=== PATIENT | female | born 1985 | race Two or more races ===

== ENCOUNTER 2021-11-25 06:19 | Inpatient (IN) | payer OTHER ==
[~2021-11-25] VITALS: Ht 165.1 cm; Wt 61.2 kg
[2021-11-25] MEDS ORDERED: IV NS 0.9% 1,000 ML BAG IV ONE ×2 (07:30→10:00)
[2021-11-25] MEDS ORDERED: ONDANSETRON HCL/PF 4 MG/2 ML VIAL IVP ONE ×2 (07:30→10:00)
[2021-11-25] MEDS ORDERED: MORPHINE SULFATE INJ 2 MG/ML DISP.SYRIN IV ONE (07:30)
--- NOTE | 2021-11-25 08:00 | NUR ---
ARTUR 89 FROM HOME FOR C/O ABDOMINAL PAIN 05/20, N/V/ X 3 DAYS. WAS HOSPITALIZED AT [facility] FOR COVID 2 WEEKS AGO. THE PATIENT IS ALERT AND ORIENTED X4. IN ROOM AIR AND DENIES SOB. RESPIRATION REGULAR AND UNLABORED. WILL CONTINUE TO MONITOR THE PATIENT.
[2021-11-25] MEDS ORDERED: ONDANSETRON HCL/PF 4 MG/2 ML VIAL ONE ×2 (08:08→10:29)
[2021-11-25] MEDS ORDERED: MORPHINE SULFATE INJ 4 MG/ML DISP.SYRIN ONE (08:08)
--- NOTE | 2021-11-25 08:15 | NUR ---
IV LINE IS ESTABLISHED, BLOOD SPECIMEN COLLECTED AND SENT TO THE LAB. THE LINE IS SALINE LOCKED.
[2021-11-25 08:37] LABS: HEMATOCRIT 40 % (33-45); HEMOGLOBIN 13.4 g/dL (11.5-14.8); LYMPHOCYTES # (AUTO) 0.4 K/uL (0.8-4.8); MEAN CORPUSCULAR HGB CONC 34 g/dl (31.0-36.0); MEAN CORPUSCULAR VOLUME 109 fL (82-100); MONOCYTES # (AUTO) 0.3 K/uL (0.1-1.30); MONOCYTES % (AUTO) 7.9 % (2.0-12.0); NEUTROPHILS # (AUTO) 3.5 K/uL (1.8-8.9); NEUTROPHILS % (AUTO) 82.1 % (43.0-81.0); PLATELET COUNT (AUTO) 226 K/uL (150-450); RED BLOOD CELL COUNT(AUTO) 3.64 MIL/uL (4.0-5.2); WHITE BLOOD COUNT (AUTO) 4.3 K/uL (4.3-11.0)
[2021-11-25 09:17] LABS: ALBUMIN 4.9 g/dL (3.4-5.0); BILIRUBIN,DIRECT 0.5 mg/dL (0.0-0.2); BILIRUBIN,TOTAL 1.6 mg/dL (0.2-1.0); CALCIUM, SERUM 10.1 mg/dL (8.5-10.1); CREATININE 1.1 mg/dL (0.6-1.3); TOTAL PROTEIN, SERUM 10.1 g/dL (6.4-8.2)
[2021-11-25 09:34] LABS: POTASSIUM 3.2 mmol/L (3.5-5.1)
[2021-11-25 10:28] LABS: ACETAMINOPHEN 0 ug/ml (10-30); ALCOHOL, BLOOD < 3 mg/dL (0-0)
[2021-11-25 10:59] LABS: BILIRUBIN,URINE NEGATIVE (NEGATIVE); COLOR,URINE RED (YELLOW); LEUKOCYTE ESTERASE ,URINE NEGATIVE (NEGATIVE); NITRITE, URINE POSITIVE (NEGATIVE); PROTEIN,URINE >=300 mg/dl (NEGATIVE); UGLUCOSE NEGATIVE (NEGATIVE)
[2021-11-25 11:14] LABS: BACTERIA,URINE Few /HPF (None Seen); RBC,URINE TOO NUMEROUS TO COUN /HPF (0-2); SQUAMOUS EPITHELIAL CELL,UR Few /HPF (None Seen); WBC,URINE 0-2 /HPF (0-3)
[2021-11-25] MEDS ORDERED: CEFTRIAXONE 2 G in IV D5W 50 ML IV ONE (12:30)
--- NOTE | 2021-11-25 12:54 | NUR ---
COVID ANTIGEN SWAB DONE AND SENT TO THE LAB
--- NOTE | 2021-11-25 15:49 | NUR ---
CALLED NURSING SUP REGARDING PT BED
--- NOTE | 2021-11-25 16:36 | NUR ---
ROOM 314-1
--- NOTE | 2021-11-25 16:41 | NUR ---
REPORT GIVEN TO NURSE LYNDA FOR BESSIE
--- NOTE | 2021-11-25 16:46 | NUR ---
THE PATIENT IS TRANSFERED TO ROOM 314-1 IN STABLE CONDITION AND PER POLICY
--- NOTE | 2021-11-25 17:00 | NUR ---
ADMISSION NOTE Received patient via gurney. Patient is A/O x 4, able to make needs known. On room air, breathing evenly and unlabored. No SOB or s/s of distress noted. IV access on Left hand #20G SL, intact and patent. Patient oriented to room and how to use the call light. Skin assessment done, skin is c/d/i. Breath sounds clear all throughout. Safety precautions in place: bed in low, locked position; siderails up x 2; call light within reach. Will continue to monitor.
[2021-11-25] MEDS ORDERED: MAGNESIUM HYDROXIDE 30 ML UDC PO PRN (18:00)
[2021-11-25] MEDS ORDERED: ONDANSETRON HCL/PF 4 MG/2 ML VIAL IVP PRN (18:00)
[2021-11-25] MEDS ORDERED: MAG HYDROX/AL HYDROX/SIMETH 30 ML UDC PO PRN (18:00)
[2021-11-25] MEDS ORDERED: ZOLPIDEM TARTRATE 5 MG TABLET PO PRN (18:00)
[2021-11-25] MEDS ORDERED: MORPHINE SULFATE INJ 2 MG/ML DISP.SYRIN IV PRN (18:00)
[2021-11-25] MEDS ORDERED: ACETAMINOPHEN 325 MG TABLET PO PRN (18:00)
[2021-11-25] MEDS ORDERED: Z GUARD REMEDY 4 OZ OINT TP PRN (18:00)
[2021-11-25] MEDS: HYDROCODONE/APAP 5/325MG TABLET PO PRN (18:12)
--- NOTE | 2021-11-25 18:12 | NUR ---
RN NOTE Patient complained of pain on abdomen 04/19, PRN [place] given. Will continue to monitor.
--- NOTE | 2021-11-25 19:40 | NUR ---
MS RN CLOSING NOTE Patient in bed, asleep. A/O x 4, able to make needs known. Stable on room air, breathing evenly and unlabored. No SOB or s/s of distress noted. IV access on Left hand #20G SL, intact and patent. NPO status maintained. All needs attended to. Denies any pain or discomfort at this time. Safety precautions maintained: bed in low, locked position; siderails up x 2; call light within reach. Will endorse to police shift commander nurse for BESSIE.
[2021-11-25 20:00] VITALS: BP 140/108
--- NOTE | 2021-11-25 20:00 | NUR ---
MS RN OPENING NOTE PATIENT SLEEPING AWAKE, EASILY AWAKENED, PT ALERT/ORIENTED X 4, ABLE TO MAKE NEEDS KNOWN. PT REPORTS MILD ABDOMINAL PAIN AT THIS TIME. PT STABLE ON RA, NO S/S OF DISTRESS OR SOB NOTED, BREATHING EVEN AND UNLABORED. PATIENT IS NPO EXCEPT FOR MEDS PER DAY SHIFT NURSE JESUS. IV ACCESS ON LEFT HAND #20G INTACT AND FLUSHING WELL. SAFETY MEASURES IN PLACE: CALL LIGHT WITHIN REACH, SIDE RAILS UP X 3, BED LOCKED IN LOW POSITION, TABLE WITHIN REACH. WILL CONTINUE TO MONITOR PATIENT
[2021-11-25] MEDS: IV D5/0.45 NACL 1,000 ML IV PRN (21:25)
[2021-11-25 22:00] VITALS: BP 135/110
--- NOTE | 2021-11-25 22:36 | NUR ---
MS RN NOTE REASSESSED PATIENT'S BP, BP NOW 135/110, HR: 84. NOTIFIED MEDICAL INSTRUCTOR MD WITH NO NEW MED ORDERS, STATED TO CONTINUE TO MONITOR PATIENT'S BP. WILL CONTINUE TO MONITOR PATIENT
[2021-11-26] VITALS: BP 135/82
--- NOTE | 2021-11-26 00:30 | NUR ---
MS RN NOTE REASSESSED PATIENT'S BP, NOW 134/82, HR: 76. WILL CONTINUE TO MONITOR PATIENT
[2021-11-26] MEDS: HYDROCODONE/APAP 5/325MG TABLET PO PRN (05:10)
[2021-11-26] MEDS: IV D5/0.45 NACL 1,000 ML IV PRN (05:28)
--- NOTE | 2021-11-26 06:49 | NUR ---
MS RN CLOSING NOTE PATIENT SLEEPING IN BED, EASILY AWAKENED, PT ALERT/ORIENTED X 4, ABLE TO MAKE NEEDS KNOWN. PT STABLE ON RA, NO S/S OF DISTRESS OR SOB NOTED, BREATHING EVEN AND UNLABORED. PATIENT IS NPO EXCEPT FOR MEDS, PAIN MEDICATION GIVEN ORDERED. IV ACCESS ON LEFT HAND #20G INTACT AND RUNNING D5 1/2 NS @ 125 ML/HR. PATIENT SLEPT WELL THROUGHOUT SHIFT, PT NEEDS MET. SAFETY MEASURES IN PLACE: CALL LIGHT WITHIN REACH, SIDE RAILS UP X 3, BED LOCKED IN LOW POSITION, TABLE WITHIN REACH. WILL ENDORSE TO DAY SHIFT NURSE FOR CONTINUITY OF CARE
[2021-11-26 07:18] LABS: BASOPHILS % (AUTO) 0.4 % (0.0-2.0); EOSINOPHILS % (AUTO) 0.7 % (0.0-6.0); HEMATOCRIT 36 % (33-45); HEMOGLOBIN 11.7 g/dL (11.5-14.8); LYMPHOCYTES # (AUTO) 0.7 K/uL (0.8-4.8); LYMPHOCYTES % (AUTO) 24.1 % (20.0-44.0); MEAN CORPUSCULAR HGB CONC 33 g/dl (31.0-36.0); MEAN CORPUSCULAR VOLUME 110 fL (82-100); MONOCYTES # (AUTO) 0.3 K/uL (0.1-1.30); NEUTROPHILS # (AUTO) 1.9 K/uL (1.8-8.9); NEUTROPHILS % (AUTO) 64.8 % (43.0-81.0); PLATELET COUNT (AUTO) 177 K/uL (150-450); RED BLOOD CELL COUNT(AUTO) 3.25 MIL/uL (4.0-5.2)
[2021-11-26 07:20] LABS: ALBUMIN 3.9 g/dL (3.4-5.0); BILIRUBIN,DIRECT 0.4 mg/dL (0.0-0.2); BILIRUBIN,TOTAL 1.1 mg/dL (0.2-1.0); CALCIUM, SERUM 9.1 mg/dL (8.5-10.1); CREATININE 0.9 mg/dL (0.6-1.3); MAGNESIUM 1.8 mg/dL (1.8-2.4); PHOSPHORUS 1.3 mg/dL (2.5-4.9); TOTAL PROTEIN, SERUM 7.9 g/dL (6.4-8.2)
[2021-11-26] MEDS ORDERED: CALC-168 PO (07:35)
[2021-11-26] MEDS ORDERED: LOSA25TA27 PO (07:35)
[2021-11-26] MEDS ORDERED: HYDR25TA4 PO (07:35)
[2021-11-26] MEDS ORDERED: HYDR50TA61 PO (07:35)
[2021-11-26] MEDS ORDERED: GABA300C PO (07:35)
--- NOTE | 2021-11-26 07:44 | NUR ---
RN OPENING NOTES PATIENT AWAKE IN BED RESTING, A/O X 4. NO S/S OF PAIN NOTED AT THIS TIME. PATIENT ON ROOM AIR NO DISTRESS OR SHORTNESS OF BREATH NOTED. IV ACCESS L HAND #20G, PATENT AND FLUSHING WELL. FALL AND SAFETY MEASURES IN PLACE, BED ALARM ON, BED IN LOW AND LOCK POSITION, CALL LIGHT AND TABLE WITHIN EASY REACH, SIDE RAILS UP X2. WILL CONTINUE TO MONITOR.
[2021-11-26 08:13] VITALS: BP 149/105
[2021-11-26 08:25] LABS: THYROID STIMULATING HORMONE 1.872 uIU/mL (0.358-3.74)
[2021-11-26] MEDS ORDERED: PANTOPRAZOLE 40 MG VIAL IV SCH (09:00)
[2021-11-26] MEDS ORDERED: POTASSIUM CL. PREMIX PERIPHER. 50 ML IV SCH (10:00)
[2021-11-26] MEDS ORDERED: POTASSIUM CHLORIDE 10 MEQ TABLET.SA PO SCH ×2 (12:00→15:00)
[2021-11-26] MEDS ORDERED: POTASSIUM CHLORIDE 20 MEQ TAB.PRT.SR PO SCH ×2 (12:00→15:00)
--- NOTE | 2021-11-26 14:20 | NUR ---
[employer] WORKER NOTE PATIENT WAS DISCHARGE IN MEDICAL STABLE CONDITIONS BUT, PATIENT POTASSIUM WAS 3.0 PATIENT REFUSED IV POTASSIUM AND LEFT WITHOUT TAKING PO POTASSIUM, EXPLANATION OF BENEFITS OF TAKING POTASSIUM AND RISK OF NOT TAKING IT WAS GIVEN TO PATIENT, PATIENT VERBALIZED UNDERSTANDING. PATIENT REFUSED VITAL SIGNS AND SKIN ASSESSMENT. NAME ARM BAND REMOVED. PATIENT REFUSED TO SIGNED BELONGING LIST AND DISCHARGE PAPERS. PATIENT LEFT UNIT AMBULATING WITH NO SIGNS DISTRESS, ACCOMPANIED BY MOLD BUNCH TRIMMER TO THE LOBBY. CHARGE NURSE AWARE OF DISCHARGE.
[2021-11-26] MEDS ORDERED: Sodium Phosphate 15 MMOL in IV NS 0.9% 250 ML IV SCH (16:00)
== END 2021-11-26 14:20 | disposition home or self-care (01) | DRG 775 ==
LOC: ER 06:21 → MED 16:51
PROVIDERS: ADMIT Student in an Organized Health Care Education/Training Program; ATTEND Student in an Organized Health Care Education/Training Program
DX: F12.13 Cannabis abuse with withdrawal (principal); F10.20 Alcohol dependence, uncomplicated; E87.2 Acidosis; K76.0 Fatty (change of) liver, not elsewhere classified; R11.2 Nausea with vomiting, unspecified; E87.1 Hypo-osmolality and hyponatremia; E87.6 Hypokalemia; F31.30 Bipolar disorder, current episode depressed, mild or moderate severity, unspecified; E86.0 Dehydration; I10 Essential (primary) hypertension; R10.9 Unspecified abdominal pain; R74.01 Elevation of levels of liver transaminase levels; Z20.822 Contact with and (suspected) exposure to COVID-19; F17.210 Nicotine dependence, cigarettes, uncomplicated; R82.998 Other abnormal findings in urine; Z71.6 Tobacco abuse counseling; Y90.0 Blood alcohol level of less than 20 mg/100 ml; F19.10 Other psychoactive substance abuse, uncomplicated
CPT/HCPCS: 36415; 74018; 76705-TC; 80048-TC; 80061-TC; 80076-TC; 81001; 83605-TC; 83690-TC; 83735-TC; 84100-TC; 84443-TC; 84703-TC; 85025-TC; 87081-TC; 87086-TC; A9563; C9113; C9803; G0378; G0480; J0696; J2270; J2405; J3480; J3490; J7030; J7050; J7060

== ENCOUNTER 2023-05-11 23:03 | Emergency (ER) | payer OTHER ==
[~2023-05-11] VITALS: Ht 165.1 cm; Wt 61.2 kg
[~2023-05-11 23:03] MED LIST: CALC-168 PO; GABA300C PO; HYDR25TA4 PO; HYDR50TA61 PO; LOSA25TA27 PO
[2023-05-12 01:10] LABS: BASOPHILS % (AUTO) 0.5 % (0.0-2.0); EOSINOPHILS % (AUTO) 0.2 % (0.0-6.0); HEMATOCRIT 33 % (33-45); LYMPHOCYTES # (AUTO) 0.7 K/uL (0.8-4.8); LYMPHOCYTES % (AUTO) 15.1 % (20.0-44.0); MEAN CORPUSCULAR HEMOGLOBIN 36 PG (26.0-33.0); MEAN CORPUSCULAR HGB CONC 33 g/dl (31.0-36.0); MEAN CORPUSCULAR VOLUME 110 fL (82-100); MONOCYTES # (AUTO) 0.3 K/uL (0.1-1.30); MONOCYTES % (AUTO) 6.6 % (2.0-12.0); NEUTROPHILS # (AUTO) 3.6 K/uL (1.8-8.9); NEUTROPHILS % (AUTO) 77.6 % (43.0-81.0); PLATELET COUNT (AUTO) 153 K/uL (150-450); RED BLOOD CELL COUNT(AUTO) 3.04 MIL/uL (4.0-5.2); RED CELL DISTRIBUTION WIDTH 15.3 % (11.5-15.0); WHITE BLOOD COUNT (AUTO) 4.7 K/uL (4.3-11.0)
[2023-05-12 01:21] LABS: INR 1.03 (0.91-1.10); PARTIAL THROMBOPLASTIN TIME 27.5 SEC (24.3-34.3); PROTHROMBIN TIME 10.8 SECS (9.2-11.1)
[2023-05-12 01:25] LABS: ALANINE AMINOTRANSFERASE 52 U/L (12-78); ALBUMIN 4.2 g/dL (3.4-5.0); ALKALINE PHOSPHATASE 83 U/L (46-116); ASPARTATE AMINOTRANSFERASE 125 U/L (15-37); BILIRUBIN,DIRECT 0.4 mg/dL (0.0-0.2); BILIRUBIN,TOTAL 0.7 mg/dL (0.2-1.0); CALCIUM, SERUM 9.3 mg/dL (8.5-10.1); CARBON DIOXIDE 18 mmol/L (21-32); CHLORIDE 98 mmol/L (98-107); CREATININE 0.6 mg/dL (0.6-1.3); GLUCOSE 62 mg/dL (74-106); POTASSIUM 3.2 mmol/L (3.5-5.1); SODIUM SERUM 140 mmol/L (136-145); TOTAL PROTEIN, SERUM 8.1 g/dL (6.4-8.2); UREA NITROGEN, BLOOD 11 mg/dL (7-18)
[2023-05-12 01:27] LABS: AMPHETAMINE, URINE NEGATIVE (NEGATIVE); BARBITURATE, URINE NEGATIVE (NEGATIVE); BENZODIAZEPINE, URINE NEGATIVE (NEGATIVE); OPIATE, URINE NEGATIVE (NEGATIVE); PHENCYCLIDINE SCREEN,URINE NEGATIVE (NEGATIVE)
[2023-05-12 01:29] LABS: CANNABINOID, URINE POSITIVE (NEGATIVE); COCCAINE, URINE POSITIVE (NEGATIVE)
[2023-05-12 01:55] LABS: LYMPHOCYTES % (MANUAL) 17 % (16-48); MONOCYTES % (MANUAL) 2 % (0-11.0); NEUTROPHILS % (MANUAL) 81 (42-76); PLATELET ESTIMATE ADEQUATE
[2023-05-12 05:16] VITALS: BP 133/86; TEMP 98.2; O2SAT 100
== END 2023-05-12 05:17 | disposition home or self-care (01) ==
LOC: ER 23:05
DX: R00.2 Palpitations (principal); H61.23 Impacted cerumen, bilateral; F19.10 Other psychoactive substance abuse, uncomplicated; I10 Essential (primary) hypertension; F31.9 Bipolar disorder, unspecified
CPT/HCPCS: 36415; 71045-TC; 80048-TC; 80076-TC; 84484-TC; 85025-TC; 85730-TC; G0480

== ENCOUNTER 2023-10-14 20:04 | Emergency (ER) | payer OTHER ==
[~2023-10-14] VITALS: Ht 167.6 cm; Wt 55.3 kg
[2023-10-14 21:04] VITALS: BP 130/93; TEMP 97.7
[2023-10-14 22:19] VITALS: O2SAT 100
== END 2023-10-14 22:20 | disposition home or self-care (01) ==
LOC: ER 20:15
DX: R07.9 Chest pain, unspecified (principal); I10 Essential (primary) hypertension; F31.9 Bipolar disorder, unspecified; F17.200 Nicotine dependence, unspecified, uncomplicated; Z59.00 Homelessness unspecified